=== PATIENT | female | born 1955 | race Caucasian/White ===

== ENCOUNTER 2022-06-03 09:21 | Inpatient (IN) ==
[2022-06-03] MEDS ORDERED: Aspirin 81 MG TAB.CHEW PO ONE ×2 (10:04→10:50)
[2022-06-03 11:16] LABS: Basophils % 0.2 %; Hematocrit 39.3 % (35.3-44.9); Hemoglobin 13.1 g/dL (11.5-15.4); Immature Granulocytes % 0.6 % (0-4); Lymphocytes % 4.9 %; Mean Corpuscular HGB Conc 33.3 g/dL (31.6-35.5); Mean Corpuscular Hemoglobin 29.5 pg (28.0-33.3); Mean Corpuscular Volume 88.5 fL (83.0-100.0); Mean Platelet Volume 9.1 fL (9.4-12.4); Monocytes # 1.6 K/mcL (0.0-1.3); Monocytes % 7.5 %; Neutrophils # 18.6 K/mcL (1.6-8.9); Platelet Count 686 K/mcL (140-400); Red Blood Count 4.44 M/mcL (3.82-4.97); Red Cell Distribution Width 13.3 % (11.5-14.5); Segmented Neutrophils % 86.8 %; White Blood Count 21.4 K/mcL (4.3-11.1)
[2022-06-03 11:23] LABS: INR 1.4; Prothrombin Time 15.2 Seconds (9.4-12.1)
[2022-06-03 12:31] LABS: BUN/Creatinine Ratio 22 (6-26); Blood Urea Nitrogen 31 mg/dL (8-23); Calcium 9.4 mg/dL (8.6-10.3); Carbon Dioxide 20 mEq/L (23-29); Chloride 103 mEq/L (98-107); Glucose 136 mg/dL (70-105); Osmolality,Calculated 287 (280-300); Sodium 134 mEq/L (136-145); Troponin I < 0.03 ng/mL (< 0.04)
[2022-06-03] MEDS ORDERED: DilTIAZem 50 MG/50 ML IV.SOLN IVC SCH (17:30)
[2022-06-03] MEDS ORDERED: Naloxone 0.4 MG/ML INJ IVP PRN ×2 (20:35→20:43)
[2022-06-03] MEDS ORDERED: Acetaminophen 325 MG TABLET PO PRN ×2 (20:35→20:43)
[2022-06-03] MEDS ORDERED: Ondansetron 4 MG/2 ML VIAL IVP PRN ×2 (20:35→20:43)
[2022-06-03] MEDS ORDERED: Melatonin 3 MG TABLET PO PRN ×2 (20:35→20:43)
[2022-06-03] MEDS ORDERED: D5% in Water 1,000 ML IVC PRN (20:39)
[2022-06-03] MEDS ORDERED: Dextrose Gel 15 GM/37.5 ML TUBE PO PRN ×2 (20:39)
[2022-06-03] MEDS ORDERED: *HR* Dextrose 50 % in Water (Syg) 50 ML SYRINGE IVP PRN (20:39)
[2022-06-03] MEDS ORDERED: 0.9 % Sodium Chloride 1,000 ML IVC SCH ×2 (20:45)
[2022-06-03] MEDS ORDERED: *HR* Heparin 5,000 UNIT/ML VIAL IVP ONE (21:13)
[2022-06-03] MEDS ORDERED: *HR* Heparin 5,000 UNIT/ML VIAL IVP PRN (21:13)
[2022-06-03] MEDS: DilTIAZem 50 MG/50 ML IV.SOLN IVC SCH (22:05)
[2022-06-03] MEDS: Heparin 25,000UNIT/250ML 1/2NS 25,000 UNIT/250 ML IV.SOLN IVC SCH (23:45)
[2022-06-04] MEDS: Insulin LISPRO 300 UNITS/3 ML VIAL SUBQ SCH ×4 (04:04→17:37)
[2022-06-04] MEDS: DilTIAZem 50 MG/50 ML IV.SOLN IVC SCH ×2 (05:25→09:30)
[2022-06-04 05:47] LABS: Heparin anti-factor XA UFH 0.22 IU/mL (0.30-0.70); INR 1.3
[2022-06-04 05:52] LABS: Hematocrit 39.4 % (35.3-44.9); Hemoglobin 12.8 g/dL (11.5-15.4); Mean Corpuscular HGB Conc 32.5 g/dL (31.6-35.5); Mean Corpuscular Hemoglobin 28.8 pg (28.0-33.3); Mean Corpuscular Volume 88.7 fL (83.0-100.0); Mean Platelet Volume 9.6 fL (9.4-12.4); Platelet Count 617 K/mcL (140-400); Red Blood Count 4.44 M/mcL (3.82-4.97); Red Cell Distribution Width 13.2 % (11.5-14.5); White Blood Count 15.4 K/mcL (4.3-11.1)
[2022-06-04 06:17] LABS: Calcium 9.4 mg/dL (8.6-10.3); Potassium 4.2 mEq/L (3.5-5.1); Troponin I 0.03 ng/mL (< 0.04)
[2022-06-04 06:42] LABS: Adenovirus Not Detected (Not Detect); Bordetella Pertussis Not Detected (Not Detect); Chlamydophila pneumoniae Not Detected (Not Detect); Coronavirus 229E Not Detected (Not Detect); Coronavirus HKU1 Not Detected (Not Detect); Coronavirus NL63 Not Detected (Not Detect); Coronavirus OC43 Not Detected (Not Detect); Human Metapneumovirus Not Detected (Not Detect); Human Rhinovirus/Enterovirus Not Detected (Not Detect); Influenza A Subtype 2009 H1 Not Detected (Not Detect); Influenza B Not Detected (Not Detect); Mycoplasma pneumoniae Not Detected (Not Detect); Parainfluenza Virus 1 Not Detected (Not Detect); Parainfluenza Virus 2 Not Detected (Not Detect); Parainfluenza Virus 3 Not Detected (Not Detect); Parainfluenza Virus 4 Not Detected (Not Detect); Respiratory Syncytial Virus Not Detected (Not Detect); SARS-CoV-2 Not Detected (Not Detect)
[2022-06-04] MEDS: *HR* Heparin 5,000 UNIT/ML VIAL IVP PRN ×2 (06:50→21:53)
[2022-06-04] MEDS ORDERED: amLODIPine 5 MG TABLET PO SCH (09:00)
[2022-06-04] MEDS: Metoprolol XL (24 HR) Succ 50 MG TAB.ER.24H PO SCH (12:07)
[2022-06-04 16:27] LABS: Bilirubin,Urine Negative (Negative); Blood,Urine Negative (Negative); Clarity,Urine Clear (Clear); Color,Urine Light-Yellow (Yellow); Glucose,Urine (UA) Normal (Normal); Ketones,Urine Negative (Negative); Leukocyte Esterase,Urine Negative (Negative); Nitrite,Urine Negative (Negative); PH,Urine 5.5 pH Units (5.0-8.0); Protein,Urine Trace mg/dL (Neg-Trace); Specific Gravity,Urine 1.012 (1.010-1.025); Urobilinogen,Urine Normal (Normal)
[2022-06-04] MEDS: Insulin DETEMIR 100 UNIT/ML X5UNITS SUBQ SCH (21:11)
[2022-06-04] MEDS: gemfibroziL 600 MG TABLET PO SCH (21:11)
[2022-06-04] MEDS: Heparin 25,000UNIT/250ML 1/2NS 25,000 UNIT/250 ML IV.SOLN IVC SCH (21:54)
[2022-06-05] MEDS: Cholecalciferol (D-3) 1,000 UNIT (25MCG) TABLET PO SCH (08:24)
[2022-06-05] MEDS: Metoprolol XL (24 HR) Succ 50 MG TAB.ER.24H PO SCH (08:24)
[2022-06-05] MEDS: Insulin LISPRO 300 UNITS/3 ML VIAL SUBQ SCH ×3 (08:24→16:14)
[2022-06-05] MEDS: gemfibroziL 600 MG TABLET PO SCH ×2 (08:24→20:56)
[2022-06-05] MEDS: lisinopriL 20 MG TABLET PO SCH (08:25)
[2022-06-05] MEDS: Spironolactone 25 MG TABLET PO SCH (08:25)
[2022-06-05] MEDS ORDERED: DilTIAZem CD (24hr) 180 MG CAP.ER.24H PO SCH (12:00)
[2022-06-05] MEDS: Heparin 25,000UNIT/250ML 1/2NS 25,000 UNIT/250 ML IV.SOLN IVC SCH (17:46)
[2022-06-05] MEDS: Insulin DETEMIR 100 UNIT/ML X5UNITS SUBQ SCH (20:56)
[2022-06-06] MEDS: Insulin LISPRO 300 UNITS/3 ML VIAL SUBQ SCH ×3 (07:34→17:04)
[2022-06-06] MEDS: Metoprolol XL (24 HR) Succ 50 MG TAB.ER.24H PO SCH ×2 (08:50→20:26)
[2022-06-06] MEDS: Cholecalciferol (D-3) 1,000 UNIT (25MCG) TABLET PO SCH (08:51)
[2022-06-06] MEDS: Spironolactone 25 MG TABLET PO SCH (08:51)
[2022-06-06] MEDS: lisinopriL 20 MG TABLET PO SCH (08:51)
[2022-06-06] MEDS: gemfibroziL 600 MG TABLET PO SCH ×2 (09:01→20:26)
[2022-06-06] MEDS ORDERED: Lidocaine Viscous Oral Soln 15 ML SOLUTION MM PRN (13:07)
[2022-06-06] MEDS ORDERED: 0.9 % Sodium Chloride 500 ML IVC ONE (13:08)
[2022-06-06] MEDS: *HR* Midazolam HCl 5 MG/5 ML VIAL IVP PRN ×3 (13:55→14:25)
[2022-06-06] MEDS: *HR* FentaNYL (PF) 100 MCG/2 ML VIAL IVP PRN ×3 (13:55→14:25)
[2022-06-06] MEDS: Heparin 25,000UNIT/250ML 1/2NS 25,000 UNIT/250 ML IV.SOLN IVC SCH (15:44)
[2022-06-06] MEDS: Apixaban 5 MG TABLET PO SCH (18:04)
[2022-06-06] MEDS: Insulin DETEMIR 100 UNIT/ML X5UNITS SUBQ SCH (20:26)
[2022-06-07 02:53] LABS: Basophils % 0.4 %; Eosinophils # 0.1 K/mcL (0.0-0.6); Eosinophils % 0.8 %; Hematocrit 32.3 % (35.3-44.9); Immature Granulocytes % 0.5 % (0-4); Lymphocytes # 1.3 K/mcL (0.6-4.6); Lymphocytes % 11.4 %; Mean Corpuscular HGB Conc 32.2 g/dL (31.6-35.5); Mean Corpuscular Hemoglobin 28.8 pg (28.0-33.3); Mean Corpuscular Volume 89.5 fL (83.0-100.0); Mean Platelet Volume 8.6 fL (9.4-12.4); Monocytes # 0.9 K/mcL (0.0-1.3); Monocytes % 8.5 %; Neutrophils # 8.6 K/mcL (1.6-8.9); Platelet Count 565 K/mcL (140-400); Red Blood Count 3.61 M/mcL (3.82-4.97); Red Cell Distribution Width 13.3 % (11.5-14.5); Segmented Neutrophils % 78.4 %
[2022-06-07 02:54] LABS: Hemoglobin 10.4 g/dL (11.5-15.4)
[2022-06-07 03:11] LABS: Calcium 9.4 mg/dL (8.6-10.3); Potassium 4.1 mEq/L (3.5-5.1)
[2022-06-07] MEDS: Apixaban 5 MG TABLET PO SCH (05:12)
[2022-06-07 07:20] VITALS: BP 133/89; PULSE 19; TEMP 98.4; O2SAT 98
[2022-06-07] MEDS ORDERED: DilTIAZem CD (24hr) 240 MG CAP.ER.24H PO SCH (09:00)
[2022-06-07] MEDS: gemfibroziL 600 MG TABLET PO SCH (10:09)
[2022-06-07] MEDS: Cholecalciferol (D-3) 1,000 UNIT (25MCG) TABLET PO SCH (10:09)
[2022-06-07] MEDS: Spironolactone 25 MG TABLET PO SCH (10:10)
[2022-06-07] MEDS: lisinopriL 20 MG TABLET PO SCH (10:10)
[2022-06-07] MEDS: Metoprolol XL (24 HR) Succ 50 MG TAB.ER.24H PO SCH (10:10)
[2022-06-07] MEDS: Insulin LISPRO 300 UNITS/3 ML VIAL SUBQ SCH ×2 (10:13→12:45)
== END 2022-06-07 15:00 | disposition home or self-care (01) | DRG 309 ==
LOC: EMEROOARM 09:21 → 3NENU 09:21 → SUATTDRO 06-04 02:10
PROVIDERS: ADMIT Internal Medicine; ATTEND Internal Medicine